=== PATIENT | female | born 1995 | race Caucasian/White ===

== ENCOUNTER 2016-11-14 20:18 | Emergency (ER) | payer OTHER ==
[2016-11-14 20:19] VITALS: BP 135/86; PULSE 74; RESP 16; TEMP 98.3; O2SAT 99
[2016-11-14] MEDS ORDERED: BIRTH CONTROL (20:49)
--- NOTE | 2016-11-14 21:25 | PD ---
HPI Chief Complaint: Pain: Acute or Chronic Time Seen by Provider: 21:22 Travel History International Travel<30 days: No Contact w/Intl Traveler<30days: No Traveled to known affect area: No History of Present Illness HPI 21-year-old white female presents to emergency department for evaluation of upper abdominal left chest pain. She states that she has had similar pains on and off after having an amoeba infection last year when she had went to [place]. She states that she has had inflammatory bowel disease secondary to that as well. She currently states that she had an episode earlier today that was causing discomfort in her right upper quadrant and radiated to her left upper quadrant. Later in the day she states that she developed left-sided chest pain with pain into her left arm. She had no associated shortness of breath or wheezing. No nausea vomiting or diaphoresis. She does suffer some anxiety. She states that she has not had her menstrual period this month. She does not drink or smoke. No drugs. She states that she is a student at [employer] and does not like the [facility] [place] and [place]. She chooses to come here to [place]. Denies any family history of heart disease. [facility] Past Medical History Narrative Medical Parasitic amoeba infection, Escherichia coli, IBS Tetanus Vaccination: < 5 Years ?: Not Past Surgical History Surgical History: No Previous Surgery Social History Alcohol Use: No Tobacco Use: No Substance Use: No Allergies-Medications (Allergen,Severity, Reaction): Coded Allergies: No Known Allergies (Unverified , 11/14/16) Reported Meds & Prescriptions Reported Meds & Active Scripts Active Reported [ Control] Review of Systems Except as stated in HPI: all other systems reviewed are Neg Physical Exam Narrative GENERAL: Well-developed, well-nourished in no apparent distress. Nontoxic appearing. HEAD: Normocephalic, atraumatic. EYES: Pupils equal round and reactive. Extraocular motions intact. No scleral icterus. No injection or drainage. ENT: Nose clear. Throat without erythema, tonsillar hypertrophy or exudate. Uvula midline. Airway patent. NECK: Trachea midline. Supple, nontender, moves head freely. No central bony tenderness or spasm. CARDIOVASCULAR: Regular rate and rhythm without murmurs, gallops, or rubs. RESPIRATORY: Clear to auscultation. Breath sounds equal bilaterally. No wheezes , rales, or rhonchi. GASTROINTESTINAL: Abdomen soft, non-tender, nondistended. No hepato-splenomegaly , or palpable masses. No guarding. EXTREMITIES: No clubbing, cyanosis, or edema. No joint tenderness. No calf tenderness. BACK: Nontender without deformity. No flank tenderness. NEUROLOGICAL: Awake, alert and oriented x 3 .Cranial nerves grossly intact. Motor and sensory grossly within normal limits. Normal speech. Data Data Last Documented VS Vital Signs Date Time Temp Pulse Resp B/P Pulse Ox O2 Delivery O2 Flow Rate FiO2 11/14/16 20:19 98.3 74 16 135/86 99 Room Air Orders Electrocardiogram (11/14/16 21:21) Complete Blood Count With Diff (11/14/16 21:21) Comprehensive Metabolic Panel (11/14/16 21:21) D-Dimer (11/14/16 21:21) Chest, Single Ap (11/14/16 21:21) Ed Urine Pregnancytest Poc (11/14/16 21:21) Labs Laboratory Tests Test 11/14/16 21:46 White Blood Count 8.3 TH/MM3 Red Blood Count 4.51 MIL/MM3 Hemoglobin 14.3 GM/DL Hematocrit 40.6 % Mean Corpuscular Volume 90.0 FL Mean Corpuscular Hemoglobin 31.7 PG Mean Corpuscular Hemoglobin 35.2 % Concent Red Cell Distribution Width 12.5 % Platelet Count 282 TH/MM3 Mean Platelet Volume 8.5 FL Neutrophils (%) (Auto) 47.7 % Lymphocytes (%) (Auto) 40.0 % Monocytes (%) (Auto) 9.8 % Eosinophils (%) (Auto) 1.7 % Basophils (%) (Auto) 0.8 % Neutrophils # (Auto) 3.9 TH/MM3 Lymphocytes # (Auto) 3.3 TH/MM3 Monocytes # (Auto) 0.8 TH/MM3 Eosinophils # (Auto) 0.1 TH/MM3 Basophils # (Auto) 0.1 TH/MM3 CBC Comment DIFF FINAL Differential Comment D-Dimer Quantitative (PE/DVT) 0.20 MG/L FEU [facility] Medical Decision Making Medical Screen Exam Complete: Yes Emergency Medical Condition: Yes Medical Record Reviewed: Yes Interpretation(s) Chest x-ray: No acute prominent process. EKG shows NSR, no ST elevation or depression, and no arrhythmias. No significant T-wave inversions.CBC & BMP Diagram 1/23/17 21:46 D-dimer: Negative Differential Diagnosis Differential diagnoses: Anxiety, pulmonary embolus, electrolyte abnormality, pleurisy, GERD Narrative Course Patient's EKG, chest x-ray, d-dimer negative. I see no emergent condition. This is chest pain Diagnosis Primary Impression: Chest pain, non-cardiac Patient Instructions: General Instructions Additional Instructions: Rest. May consider taking ibuprofen for chest pains. Follow-up with a primary care doctor or the clinic at school within 1 week. Return to the ER if any problems. Med/Other Pt SpecificInfo: No Meds Exist/No RX given Disposition: 01 DISCHARGE HOME Condition: Stable Rob Bradley Nov 14, 2016 21:25
[2016-11-14 22:16] LABS: AUTOMATED NEUTROPHIL # 3.9 TH/MM3 (1.8-7.7); BASOPHIL # 0.1 TH/MM3 (0-0.2); BASOPHIL % 0.8 % (0.0-2.0); EOSINOPHIL # 0.1 TH/MM3 (0-0.4); EOSINOPHIL % 1.7 % (0.0-4.0); HEMATOCRIT 40.6 % (35.0-46.0); HEMO FLAGS DIFF FINAL; LYMPHOCYTE # 3.3 TH/MM3 (1.0-4.8); MEAN CORPUSCULAR HEMOGLOBIN 31.7 PG (27.0-34.0); MEAN CORPUSCULAR HGB CONC 35.2 % (32.0-36.0); MONO % 9.8 % (0.0-8.0); NEUT % 47.7 % (16.0-70.0); PLATELET COUNT 282 TH/MM3 (150-450); RED BLOOD COUNT 4.51 MIL/MM3 (4.00-5.30); RED CELL DISTRIBUTION WIDTH 12.5 % (11.6-17.2); WHITE BLOOD COUNT 8.3 TH/MM3 (4.0-11.0)
--- NOTE | 2016-11-14 22:39 | RADRPT ---
EXAM DATE/TIME: 11/14/2016 21:18 [place] COMPARISON: No previous studies available for comparison. INDICATIONS : Left anterior chest pain MEDICAL HISTORY : None. SURGICAL HISTORY : None. ENCOUNTER: Initial ACUITY: 1 day PAIN SCORE: 10 LOCATION: Bilateral chest FINDINGS: A single view of the chest demonstrates the lungs to be symmetrically aerated without evidence of mas s, infiltrate or effusion. The cardiomediastinal contours are unremarkable. Osseous structures are intact. CONCLUSION: Normal examination for a patient of this age. Rob Ocampo MD on November 14, 2016 at 22:38 Board Certified Radiologist. This report was verified electronically.
[2016-11-14 22:43] LABS: ALKALINE PHOSPHATASE 71 U/L (45-117); ALT (GPT) 24 U/L (10-53); ANION GAP 8 MEQ/L (5-15); AST (GOT) 24 U/L (15-37); BICARBONATE 26.4 MEQ/L (21.0-32.0); BLOOD UREA NITROGEN 11 MG/DL (7-18); CHLORIDE 106 MEQ/L (98-107); GLOMERULAR FILTRATION RATE 65 ML/MIN (>89); POTASSIUM 3.8 MEQ/L (3.5-5.1); SODIUM (NA) 140 MEQ/L (136-145); TOTAL BILIRUBIN ADULT 0.3 MG/DL (0.2-1.0)
[2016-11-14 23:05] VITALS: BP 120/80; PULSE 75; RESP 16; O2SAT 99
--- NOTE | 2016-11-15 16:41 | EKG ---
Date Performed: 11/14/2016 Time Performed: 22:17:22 PTAGE: 21 years EKG: Sinus rhythm POSSIBLE RIGHT VENTRICULAR CONDUCTION DELAY BORDERLINE ECG NO PREVIOUS TRACING DOCTOR: Wanda Esquivel Interpretating Date/Time 11/15/2016 16:35:49
== END 2016-11-15 00:02 | disposition home or self-care (01) ==
LOC: NEPB 20:18
DX: R07.89 Other chest pain (principal); R94.31 Abnormal electrocardiogram [ECG] [EKG]
CPT/HCPCS: 71010; 80053; 84703; 85025; 85379; 93005